=== PATIENT | male | born 1960 | race African-American/Black ===

== ENCOUNTER 2025-04-22 06:30 | Inpatient (IN) | payer OTHER ==
[2025-04-22 06:53] LABS: #Basophils 0.03 10x3/uL (0.0-0.2); #Eosinophils 0.17 10x3/uL (0.0-0.7); #Monocytes 0.55 10x3/uL (0.11-0.59); #Neutrophils 2.30 10x3/uL (1.40-6.50); %Basophils 0.6 % (0.0-1.0); %Eosinophils 3.3 % (0.0-10.0); %Lymphocytes 40.8 % (21.0-51.0); %Monocytes 10.6 % (0.0-10.0); %Neutrophils 44.5 % (42.0-75.0); Hematocrit 36.2 % (42.0-52.0); Hemoglobin 11.4 g/dL (14.0-18.0); Mean Corpuscular Hemoglobin 29.1 pg (27.0-31.0); Mean Corpuscular Volume 92.3 fL (78.0-98.0); Platelet Count 199 10x3/uL (130-400); Red Blood Cell (RBC) Count 3.92 mill/uL (4.70-6.10); White Blood Cell (WBC) Count 5.17 10x3/uL (4.8-10.8)
[2025-04-22 07:12] LABS: ALT (SGPT) Less than 7 U/L (Less than 45); AST (SGOT) 17 U/L (11-34); Albumin 3.3 g/dL (3.1-4.5); Alkaline Phosphatase 87 U/L (40-110); Anion Gap 13 mmol/L (10-20); BUN (Urea Nitrogen) 12 mg/dL (8.4-25.7); Bilirubin, Total 0.4 mg/dL (0.3-1.2); Calc. Creatinine Clearance 0 mL/min (70-130); Calcium 8.7 mg/dL (7.8-10.44); Carbon Dioxide 23 mmol/L (23-31); Chloride 112 mmol/L (98-107); Globulin 3.3 g/dL (2.4-3.5); Glucose 87 mg/dL (80-115); Potassium 3.8 mmol/L (3.5-5.1); Sodium 144 mmol/L (136-145)
[2025-04-22] MEDS ORDERED: Ketorolac Tromethamine 30 MG (1 mL) VIAL ONE (07:30)
[2025-04-22 07:43] LABS: Lipase 12 U/L (8-78); Magnesium 1.8 mg/dL (1.6-2.6)
[2025-04-22 14:30] VITALS: BMI 35.7
[2025-04-22] MEDS: Acetaminophen 325 MG TAB PO PRN (15:31)
[2025-04-22] MEDS: Famotidine 20 MG TAB PO SCH (20:37)
[2025-04-22] MEDS: Cyclobenzaprine 10 MG TAB PO SCH (20:38)
[2025-04-22] MEDS: Ketorolac Tromethamine 30 MG (1 mL) VIAL IVP PRN (20:45)
[2025-04-22] MEDS: Melatonin 3 MG TAB PO PRN (20:46)
[2025-04-22] MEDS: Lisinopril 20 MG TAB PO SCH (20:57)
[2025-04-23 05:38] LABS: Cardiac Risk 4.0 (Less than 4.5); Cholesterol 124.0 mg/dl (< 200 Desired); HDL Cholesterol 31.0 mg/dL (>60 Neg Risk); LDL Cholesterol, Calculated 80.0 mg/dL; Triglycerides 67.0 mg/dL (Less than 150)
[2025-04-23] MEDS: Lisinopril 20 MG TAB PO SCH (08:32)
[2025-04-23] MEDS: Aspirin Chewable 81 MG TAB PO SCH (08:33)
[2025-04-23] MEDS: Enoxaparin 40 MG (0.4 mL) SYRINGE SC SCH (08:33)
[2025-04-24 05:28] LABS: #Basophils Less than 0.03 10x3/uL (0.0-0.2); #Eosinophils 0.17 10x3/uL (0.0-0.7); #Monocytes 0.65 10x3/uL (0.11-0.59); #Neutrophils 3.29 10x3/uL (1.40-6.50); %Basophils 0.3 % (0.0-1.0); %Eosinophils 2.7 % (0.0-10.0); %Lymphocytes 34.4 % (21.0-51.0); %Monocytes 10.3 % (0.0-10.0); %Neutrophils 52.0 % (42.0-75.0); Hematocrit 36.4 % (42.0-52.0); Hemoglobin 11.6 g/dL (14.0-18.0); Mean Corpuscular Hemoglobin 29.3 pg (27.0-31.0); Mean Corpuscular Volume 91.9 fL (78.0-98.0); Platelet Count 199 10x3/uL (130-400); Red Blood Cell (RBC) Count 3.96 mill/uL (4.70-6.10); White Blood Cell (WBC) Count 6.33 10x3/uL (4.8-10.8)
[2025-04-24 06:36] LABS: Anion Gap 13 mmol/L (10-20); BUN (Urea Nitrogen) 12 mg/dL (8.4-25.7); Calc. Creatinine Clearance 137 mL/min (70-130); Calcium 8.9 mg/dL (7.8-10.44); Carbon Dioxide 24 mmol/L (23-31); Chloride 107 mmol/L (98-107); Glucose 96 mg/dL (80-115); Potassium 3.4 mmol/L (3.5-5.1); Sodium 141 mmol/L (136-145)
[2025-04-24] MEDS ORDERED: Lidocaine 1% (PF) 30 ML VIAL ONE (08:06)
[2025-04-24] MEDS ORDERED: Heparin 10,000 UNITS/ 10 ML VIAL ONE (08:06)
[2025-04-24] MEDS ORDERED: Adenosine 6 mg (2 mL) VIAL ONE (08:06)
[2025-04-24] MEDS ORDERED: Nitroglycerin 50 MG/250 ML BOT 250 ML ONE (08:07)
[2025-04-24] MEDS ORDERED: EPINEPHrine 1 MG/10 ML Abboject SYRINGE ONE (08:07)
[2025-04-24] MEDS ORDERED: PHENYLEPHRINE-NS 100 MCG/ML 10 ML SYRINGE ONE (08:07)
[2025-04-24 13:49] VITALS: BP 152/80; TEMP 98.5
== END 2025-04-24 14:45 | DRG 206 ==
LOC: ERS 06:30 → OBS 13:53 → OBSVTOIN 04-23 11:23
PROVIDERS: ADMIT Internal Medicine; ATTEND Internal Medicine
PROC: 3E033XZ Introduction of Vasopressor into Peripheral Vein, Percutaneous Approach (ICD-10-PCS; principal; 2025-04-23)
DX: M94.0 Chondrocostal junction syndrome [Tietze] (principal); I10 Essential (primary) hypertension; I51.7 Cardiomegaly; R07.89 Other chest pain; E78.5 Hyperlipidemia, unspecified; N40.0 Benign prostatic hyperplasia without lower urinary tract symptoms; Z79.899 Other long term (current) drug therapy; Z86.718 Personal history of other venous thrombosis and embolism; Z79.01 Long term (current) use of anticoagulants; I73.9 Peripheral vascular disease, unspecified
CPT/HCPCS: 36415; 71045; 78452; 80048; 80053; 80061; 83690; 83735; 83880; 84484; 85025; 85379; 93005; 93017; 93306; 96372; 96374; 96375; 96376; A9502; G0378; J0153; J0165; J0461; J1644; J1650; J1885; J2003; J2250; J2270; J2785; J3010